=== PATIENT | female | born 1945 | race Two or more races ===

== ENCOUNTER 2022-04-19 14:48 | Emergency (ER) | payer OTHER ==
[~2022-04-19] VITALS: Ht 165.1 cm; Wt 68.9 kg
[~2022-04-19 14:48] MED LIST: ZANTAC300 MG PO
== END 2022-04-19 17:54 | disposition home or self-care (01) ==
LOC: ER 14:48
DX: S42.295A Other nondisplaced fracture of upper end of left humerus, initial encounter for closed fracture (principal); S01.112A Laceration without foreign body of left eyelid and periocular area, initial encounter; S80.02XA Contusion of left knee, initial encounter; W18.39XA Other fall on same level, initial encounter; Y93.89 Activity, other specified; Y92.59 Other trade areas as the place of occurrence of the external cause; Y99.9 Unspecified external cause status; Z88.0 Allergy status to penicillin

== ENCOUNTER 2022-04-23 08:46 | Outpatient (CLI) | payer OTHER ==
[2022-04-24] MEDS ORDERED: TEGRETOL200 MG PO (08:37)
[2022-04-24] MEDS ORDERED: CALCIUM500 M2 (08:38)
[2022-04-24] MEDS ORDERED: ULTRAM50 MG (08:38)
[2022-04-24] MEDS ORDERED: TYLENOL325 MG (08:38)
[2022-04-24] MEDS ORDERED: PREVACID15 M1 PO (08:39)
[2022-04-24] MEDS ORDERED: VITAMIN D-40010 MCG (08:39)
== END 2022-04-23 08:53 | disposition home or self-care (01) ==
LOC: RAD 08:46
PROVIDERS: ATTEND Orthopaedic Surgery
DX: S42.225A 2-part nondisplaced fracture of surgical neck of left humerus, initial encounter for closed fracture (principal)

== ENCOUNTER 2022-04-24 08:23 | Emergency (ER) | payer OTHER ==
[~2022-04-24] VITALS: Ht 165.1 cm; Wt 68.9 kg
[2022-04-24] MEDS ORDERED: TEGRETOL200 MG PO (08:37)
[2022-04-24] MEDS ORDERED: CALCIUM500 M2 (08:38)
[2022-04-24] MEDS ORDERED: TYLENOL325 MG (08:38)
[2022-04-24] MEDS ORDERED: ULTRAM50 MG (08:38)
[2022-04-24] MEDS ORDERED: VITAMIN D-40010 MCG (08:39)
[2022-04-24] MEDS ORDERED: PREVACID15 M1 PO (08:39)
== END 2022-04-24 09:25 | disposition home or self-care (01) ==
LOC: ER 08:23
DX: Z48.02 Encounter for removal of sutures (principal)

== ENCOUNTER 2022-04-26 09:08 | Outpatient (CLI) | payer OTHER ==
[~2022-04-26 09:08] MED LIST changes: +CALCIUM500 M2; +PREVACID15 M1 PO; +TEGRETOL200 MG PO; +TYLENOL325 MG; +ULTRAM50 MG; +VITAMIN D-40010 MCG
== END 2022-04-26 09:16 | disposition home or self-care (01) ==
LOC: RAD 09:08
PROVIDERS: ATTEND Orthopaedic Surgery
DX: S42.225A 2-part nondisplaced fracture of surgical neck of left humerus, initial encounter for closed fracture (principal); X58.XXXA Exposure to other specified factors, initial encounter; Y93.9 Activity, unspecified; Y92.9 Unspecified place or not applicable; Y99.9 Unspecified external cause status

== ENCOUNTER 2022-05-07 08:53 | Outpatient (CLI) | payer OTHER | END 2022-05-07 08:55 | disposition home or self-care (01) | LOC: RAD 08:53 | PROVIDERS: ATTEND Orthopaedic Surgery | DX: S42.225A 2-part nondisplaced fracture of surgical neck of left humerus, initial encounter for closed fracture (principal) ==

== ENCOUNTER 2022-06-06 07:11 | Outpatient (CLI) | payer OTHER | END 2022-06-06 07:37 | disposition home or self-care (01) | LOC: RAD 07:11 | PROVIDERS: ATTEND Orthopaedic Surgery | DX: S42.225D 2-part nondisplaced fracture of surgical neck of left humerus, subsequent encounter for fracture with routine healing (principal) ==

== ENCOUNTER 2022-08-28 09:15 | Outpatient (CLI) | payer OTHER ==
[~2022-08-28 09:15] MED LIST changes: +PAXLOVID 300-11 EACH PO
== END 2022-08-28 09:30 | disposition home or self-care (01) ==
LOC: LAB 09:15
PROVIDERS: ATTEND Orthopaedic Surgery
DX: E55.9 Vitamin D deficiency, unspecified (principal); M85.9 Disorder of bone density and structure, unspecified; E56.1 Deficiency of vitamin K; E21.3 Hyperparathyroidism, unspecified

== ENCOUNTER 2022-09-30 16:43 | Emergency (ER) | payer OTHER ==
[~2022-09-30] VITALS: Ht 165.1 cm; Wt 64.4 kg
== END 2022-09-30 21:51 | disposition home or self-care (01) ==
LOC: ER 16:43
DX: M79.675 Pain in left toe(s) (principal); S05.92XA Unspecified injury of left eye and orbit, initial encounter; W18.30XA Fall on same level, unspecified, initial encounter; Y93.9 Activity, unspecified; Y92.9 Unspecified place or not applicable; Y99.9 Unspecified external cause status; M25.561 Pain in right knee

== ENCOUNTER 2022-10-04 10:25 | Outpatient (CLI) | payer OTHER | END 2022-10-04 10:31 | disposition home or self-care (01) | LOC: RAD 10:25 | PROVIDERS: ATTEND Orthopaedic Surgery | DX: S42.225D 2-part nondisplaced fracture of surgical neck of left humerus, subsequent encounter for fracture with routine healing (principal) ==

== ENCOUNTER 2022-12-17 08:57 | Outpatient (CLI) | payer OTHER | END 2022-12-17 08:58 | disposition home or self-care (01) | LOC: LAB 08:57 | PROVIDERS: ATTEND Orthopaedic Surgery | DX: D64.89 Other specified anemias (principal); E88.89 Other specified metabolic disorders; D68.8 Other specified coagulation defects; N39.0 Urinary tract infection, site not specified; A49.02 Methicillin resistant Staphylococcus aureus infection, unspecified site; I49.9 Cardiac arrhythmia, unspecified; I10 Essential (primary) hypertension; Z76.89 Persons encountering health services in other specified circumstances ==

== ENCOUNTER 2022-12-27 12:20 | Outpatient (CLI) | payer OTHER | END 2022-12-27 12:29 | disposition home or self-care (01) | LOC: RAD 12:20 | PROVIDERS: ATTEND Orthopaedic Surgery | DX: M25.512 Pain in left shoulder (principal); M24.512 Contracture, left shoulder ==

== ENCOUNTER 2022-12-31 05:52 | Day surgery (SDC) | payer OTHER | END 2022-12-31 15:05 | disposition home or self-care (01) | LOC: CIR.AMB 05:52 | PROVIDERS: ATTEND Orthopaedic Surgery | DX: M24.512 Contracture, left shoulder (principal); M19.012 Primary osteoarthritis, left shoulder; Z88.0 Allergy status to penicillin; Z20.822 Contact with and (suspected) exposure to COVID-19; I10 Essential (primary) hypertension ==

== ENCOUNTER 2023-10-30 09:53 | Outpatient (CLI) | payer OTHER ==
[2023-10-30 11:07] LABS: ALBUMIN 3.9 gm/dL (3.4-5.0); BILIRUBIN TOTAL 0.39 mg/dL (0.3-1.2); CALCIUM 9.6 mg/dL (8.5-10.1); CREATININE SERUM 0.86 mg/dL (0.55-1.02); GFR 63.65; GLOBULINA 3.5 G/DL (2.4-3.5); MAGNESIUM 2.3 mg/dL (1.8-2.4); PHOSPHOROUS 3.9 mg/dL (2.5-4.9); POTASSIUM 4.27 mEq/L (3.5-5.1); TOTAL PROTEIN 7.4 gm/dL (6.4-8.2)
[2023-10-31 18:07] LABS: CALCIUM IONIZED 5.1 mg/dL (4.5-5.6)
== END 2023-10-30 09:54 | disposition home or self-care (01) ==
LOC: LAB 09:53
PROVIDERS: ATTEND Orthopaedic Surgery
DX: E55.9 Vitamin D deficiency, unspecified (principal); M85.9 Disorder of bone density and structure, unspecified; E56.1 Deficiency of vitamin K; E21.3 Hyperparathyroidism, unspecified; E88.89 Other specified metabolic disorders; M81.8 Other osteoporosis without current pathological fracture